=== PATIENT | female | born 1955 | race Caucasian/White ===

== ENCOUNTER → 2017-10-27 | Outpatient (CLI) | payer BC ==
--- NOTE | 2017-10-27 13:46 | Diagnostic Imaging Report ---
INDICATION: Routine screening. Comparison is made with prior studies from 03/29/2016 and 04/28/2014. The current study was also evaluated with a Computer Aided Detection (CAD) system. FINDINGS: Both breasts are heterogeneously dense, limiting the sensitivity of mammography. Numerous benign-appearing calcifications are identified and appear similar to prior exam. There is a focal density in the left breast best seen on the MLO tomographic views posterior depth at the nipple line. No correlate is identified on the CC view. No other abnormalities are seen. The axillae are unremarkable. IMPRESSION: Left breast density. Further evaluation with spot compression ML views is recommended. Sonography may be necessary at this time as well, if this persists. ACR BI-RADS Category 0: Incomplete. (Needs additional imaging evaluation). Result letter will be mailed to the patient. Note: At least 10% of breast cancer is not imaged by mammography. Dictated by: Dictated on workstation # [id number]
== END ==
LOC: RAD 09:46
PROVIDERS: ATTEND Family Medicine
DX: Z12.31 Encounter for screening mammogram for malignant neoplasm of breast (principal)
CPT/HCPCS: 77067

== ENCOUNTER → 2017-11-08 | Outpatient (CLI) | payer BC ==
--- NOTE | 2017-11-08 16:40 | Diagnostic Imaging Report ---
INDICATION: Left breast density. COMPARISON: Correlation is made with diagnostic mammogram from earlier the same day and screening mammogram from 10/27/2017. EXAMINATION: Sonographic interrogation of the inner left breast was performed. FINDINGS: There appear to be two tiny cysts at the 9 o'clock location, 5 cm from the nipple, likely accounting for the mammographic densities. The largest is approximately 6 mm x 3 mm x 5 mm. No solid mass is seen. IMPRESSION: BI-RADS 2. Simple cyst at the 9 o'clock location of the left breast, 5 cm from the nipple, corresponding with the mammographic density. The patient may return to routine annual screening mammography. Dictated by: Dictated on workstation # [id number]
--- NOTE | 2017-11-08 16:44 | Diagnostic Imaging Report ---
INDICATION: Left breast density. Patient presents for additional views. COMPARISON: Correlation is made with recent screening study from 10/27/2017. EXAMINATION: 2D and 3D left diagnostic mammography was performed. This included ML and spot compression ML and spot compression MLO views of the left breast. FINDINGS: Additional views fail to demonstrate a discrete mass. Only dense tissue is identified. The density on screening study appears to be medially located at posterior depth, approximately 6 cm from the nipple, projected at or just below the nipple line on the MLO view. No corresponding abnormality is seen on additional views. Even so, further evaluation with ultrasound is recommended. No suspicious calcifications are seen. IMPRESSION: BI-RADS 0. Additional views fail to demonstrate a discrete mass. Even so, sonographic interrogation of the left breast, medially, is recommended for further evaluation. ACR BI-RADS Category 0: Incomplete. (Needs additional imaging evaluation). Result letter will be mailed to the patient. Note: At least 10% of breast cancer is not imaged by mammography. Dictated by: Dictated on workstation # [id number]
== END ==
LOC: RAD 14:06
PROVIDERS: ATTEND Family Medicine
DX: N60.02 Solitary cyst of left breast (principal)
CPT/HCPCS: 76641

== ENCOUNTER → 2017-11-13 | Outpatient (CLI) | payer BC ==
[~2017-11-13] MED LIST: CATHETER FLUSH 10 ML SYR IV PRN; REGADENOSON 0.4 MG/5 ML SYR (LEXISCAN) IV ONE
[2017-11-13 10:06] VITALS: BP 152/83
[2017-11-13 10:07] VITALS: BP 137/82
--- NOTE | 2017-11-13 22:30 | STRESS TEST ---
DATE OF SERVICE: 11/13/2017 LEXISCAN MYOVIEW STRESS TEST REPORT REFERRING PHYSICIAN: Dr. Gongora. Baseline heart rate is 65, baseline blood pressure 137/75. Baseline EKG is sinus rhythm with no EKG changes. In summary, the patient was injected with 10.83 mCi of technetium-99 Myoview and the resting images were obtained. Then, the patient received 0.4 mg of LexiScan followed by 29.6 mCi of technetium-99 Myoview. Throughout the test, there were no EKG changes. The resting and stress images were reviewed and compared in the short axis, horizontal long axis, and vertical long axis views. Review of the images showed good radiotracer uptake with no significant ischemia or infarction. SSS is 2, SDS 2, TID value 1.0. On the gated images, the left ventricle appeared to be normal size with normal contractility. Calculated ejection fraction 88%. CONCLUSION: 1. The patient tolerated LexiScan well. 2. No ischemia or infarction on SPECT images. 3. Normal left ventricular size with normal contractility. Calculated ejection fraction 88%. Job ID: [id number] DocumentID: [id number] Dictated Date: 11/13/2017 16:46:59 Project Estimator Date: 11/13/2017 22:29:29 Dictated By: LESLY COLBERT MD
== END ==
LOC: CARD 08:17
PROVIDERS: ATTEND Family Medicine
DX: R06.02 Shortness of breath (principal)
CPT/HCPCS: 78452; 93017

== ENCOUNTER 2018-06-21 10:00 | Outpatient (CLI) | payer BC ==
[~2018-06-21] VITALS: Ht 157.5 cm; Wt 61.2 kg
[2018-06-21] MEDS ORDERED: ATOR10TA66 PO (10:11)
[2018-06-21] MEDS ORDERED: ESCI10TA55 PO (10:11)
== END 2018-06-21 10:55 | disposition home or self-care (01) ==
LOC: PREOP 10:00
PROVIDERS: ATTEND Surgery
DX: Z01.818 Encounter for other preprocedural examination (principal)

== ENCOUNTER 2018-06-25 12:01 | Day surgery (SDC) | payer BC ==
[~2018-06-25] VITALS: Ht 157.5 cm; Wt 61.2 kg
[~2018-06-25 12:01] MED LIST changes: +ATOR10TA66 PO; -CATHETER FLUSH 10 ML SYR IV PRN; +ESCI10TA55 PO; -REGADENOSON 0.4 MG/5 ML SYR (LEXISCAN) IV ONE
--- OUTSIDE RECORDS SUMMARY | 2018-06-25 12:04 | XMS REPORT | Continuity of Care Document ---
Author Author [facility] Address Unknown Phone Unavailable Allergies Active Description Code Type Severity Reaction Onset Reported/Identified Relationship to Patient Clinical Status Yes No Allergy Information Available [id number] Drug Allergy Unknown N/A 2017 Yes Sulfa (Sulfonamide Antibiotics) [id number] Drug Allergy Unknown RASH 2017 Medications There is no data. Problems Date Dx Coded Attending Type Code Diagnosis Diagnosed By 04/10/2012 V04.81 FLU DX (3 YRS AND ABOVE, IM) 04/10/2012 LOVEE DYE EXPERT, FUAD A V04.81 FLU DX (3 YRS AND ABOVE, IM) 04/10/2012 RAJMADELAINEE DYE EXPERT, FUAD A V04.81 FLU DX (3 YRS AND ABOVE, IM) 04/10/2012 RAJOTTE DYE EXPERT, FUAD A V04.81 FLU DX (3 YRS AND ABOVE, IM) 11/06/2012 729.5 PAIN- ARM 11/06/2012 RAJOTTE DYE EXPERT, FUAD A 729.5 PAIN- ARM 11/06/2012 RAJOTTE DYE EXPERT, FUAD A 729.5 PAIN- ARM 11/06/2012 RAJOTTE DYE EXPERT, FUAD A 729.5 PAIN- ARM 05/27/2013 RAJOTTE DYE EXPERT, FUAD A V06.1 TDAP DX 05/27/2013 RAJOTTE DYE EXPERT, FUAD A V06.1 TDAP DX 08/18/2014 RAJOTTE DYE EXPERT, FUAD A 461.9 SINUSITIS ACUTE 08/18/2014 RAJMADELAINEE DYE EXPERT, FUAD A 786.2 COUGH 03/03/2016 JULIO CESAR IYER, MARISEL Camacho Ot V76.12 OTH SCREEN MAMMO-MALIGN NEOPLASM OF BELLA 03/03/2016 MARISEL HARRELL MD Ot V76.12 OTH SCREEN MAMMO-MALIGN NEOPLASM OF BELLA 03/29/2016 KEISLER MD, MARISEL W Ot V76.12 OTH SCREEN MAMMO-MALIGN NEOPLASM OF BELLA 03/29/2016 JULIO CESAR IYER, MARISEL Camacho Ot V76.12 OTH SCREEN MAMMO-MALIGN NEOPLASM OF BELLA 04/06/2016 GELLENDER DO, GURU Cortez Ot Z12.31 ENCNTR SCREEN MAMMOGRAM FOR MALIGNANT NE 04/21/2016 GELLENDER DO, GURU A Ot R92.0 MAMMOGRAPHIC MICROCALCIFICATION FOUND ON 04/21/2016 GELLENDER DO, GURU A Ot R92.8 OTH ABN AND INCONCLUSIVE FINDINGS ON DX 04/22/2016 JULIO CESAR IYER, MARISEL Camacho Ot V76.12 OTH SCREEN MAMMO-MALIGN NEOPLASM OF BELLA 04/22/2016 JULIO CESAR IYER, MARISEL W Ot V76.12 OTH SCREEN MAMMO-MALIGN NEOPLASM OF BELLA 04/22/2016 GELLENDER DO, GURU Cortez Ot Z12.31 ENCNTR SCREEN MAMMOGRAM FOR MALIGNANT NE 04/22/2016 GELLENDER DO, GURU A Ot R92.0 MAMMOGRAPHIC MICROCALCIFICATION FOUND ON 04/22/2016 GELLENDER DO, GURU A Ot R92.8 OTH ABN AND INCONCLUSIVE FINDINGS ON DX 05/05/2016 GELLENDER DO, GURU A Ot R92.0 MAMMOGRAPHIC MICROCALCIFICATION FOUND ON 05/05/2016 GELLENDER DO, GURU A Ot R92.8 OTH ABN AND INCONCLUSIVE FINDINGS ON DX 10/30/2017 GELLENDER DO, GURU A Ot R92.2 INCONCLUSIVE MAMMOGRAM 10/30/2017 GELLENDER DO, GURU A Ot Z12.31 ENCNTR SCREEN MAMMOGRAM FOR MALIGNANT NE 10/31/2017 GELLENDER DO, GURU A Ot R06.02 SHORTNESS OF BREATH 10/31/2017 GELLENDER DO, GURU A Ot R06.02 SHORTNESS OF BREATH 10/31/2017 GELLENDER DO, GURU A Ot R06.02 SHORTNESS OF BREATH 11/07/2017 JULIO CESAR IYER, MARISEL W Ot V76.12 OTH SCREEN MAMMO-MALIGN NEOPLASM OF BELLA 11/07/2017 JULIO CESAR IYER, MARISEL W Ot V76.12 OTH SCREEN MAMMO-MALIGN NEOPLASM OF BELLA 11/07/2017 GELLENDER DO, GURU A Ot Z12.31 ENCNTR SCREEN MAMMOGRAM FOR MALIGNANT NE 11/07/2017 GELLENDER DO, GURU Cortez Ot R92.0 MAMMOGRAPHIC MICROCALCIFICATION FOUND ON 11/07/2017 GELLENDER DO, GURU Cortez Ot R92.8 OTH ABN AND INCONCLUSIVE FINDINGS ON DX 11/07/2017 GELLENDER DO, GURU Cortez Ot Z12.31 ENCNTR SCREEN MAMMOGRAM FOR MALIGNANT NE 11/07/2017 GELLENDER DO, GURU Cortez Ot R06.02 SHORTNESS OF BREATH 11/08/2017 GELLENDER DO, GURU Cortez Ot Z12.31 ENCNTR SCREEN MAMMOGRAM FOR MALIGNANT NE 11/09/2017 GELLENDER DO, GURU Cortez Ot N60.02 SOLITARY CYST OF LEFT BREAST 11/13/2017 GELLENDER DO, GURU Cortez Ot R06.02 SHORTNESS OF BREATH 11/15/2017 GELLENDER DO, GURU Cortez Ot R06.02 SHORTNESS OF BREATH 11/22/2017 GELLENDER DO, GURU Cortez Ot N60.02 SOLITARY CYST OF LEFT BREAST 11/30/2017 GELLENDER DO, GURU Cortez Ot R06.02 SHORTNESS OF BREATH 06/20/2018 PEYTON BRADY DO Ot Z01.818 ENCOUNTER FOR OTHER PREPROCEDURAL EXAMIN 06/21/2018 PEYTON BRADY DO Ot Z01.818 ENCOUNTER FOR OTHER PREPROCEDURAL EXAMIN Procedures Code Description Per[place] By [place] On [address]7 THERAPUTIC INJ SQ/IM 08/18/2014 J1040 DEPO MEDROL 80 MG INJ 08/18/2014 Results There is no data. Encounters ACCT No. Visit Date/Time Discharge Status Pt. Type Provider Facility Loc./Unit Complaint [id number] 08/18/2014 08:39:00 08/18/2014 23:59:59 CLS Outpatient FUAD MCKENZIE APRN [id number] 04/15/2014 12:13:00 04/15/2014 23:59:59 CLS Outpatient FUAD MCKENZIE APRN [id number] 04/30/2013 15:41:00 04/30/2013 23:59:59 CLS Outpatient FUAD MCKENZIE APRN [id number] 11/06/2012 11:17:00 Document Registration [id number] 06/21/2018 10:00:00 06/21/2018 10:55:00 DIS Outpatient PEYTON BRADY DO [facility] PREOP COLONOSCOPY [id number] 11/13/2017 08:17:00 11/13/2017 23:59:59 CLS Outpatient GURU GIRARD DO [facility] CARD SOB WHEN WALK UP STAIRS [id number] 11/08/2017 14:06:00 11/08/2017 23:59:59 CLS Outpatient GURU GIRARD DO [facility] RAD ABN MAMMO ON [id number] 10/30/2017 17:26:00 10/30/2017 23:59:59 CLS Outpatient GURU GIRARD DO [facility] RAD SOB W/ EXERTION [id number] 10/27/2017 09:46:00 10/27/2017 23:59:59 CLS Outpatient GURU GIRARD DO [facility] RAD YEARLY [id number] 04/20/2016 07:58:00 04/20/2016 23:59:59 CLS Outpatient GURU GIRARD DO [facility] RAD ABNORMAL MAMMO [id number] 03/29/2016 08:41:00 03/29/2016 23:59:59 CLS Outpatient GURU GIRARD DO [facility] RAD SCREENING [id number] 04/28/2014 15:29:00 04/28/2014 23:59:59 CLS Outpatient MARISEL HARRELL MD [facility] RAD SCREENING [id number] 02/08/2013 15:02:00 02/08/2013 23:59:59 CLS Outpatient MARISEL HARRELL MD [facility] RAD SCREENING [id number] 06/25/2018 13:00:00 PEN Preadmit PEYTON BRADY DO [facility] ENDO SCREENING
[2018-06-25] MEDS ORDERED: LACTATED RINGERS 1,000 ML IV STA (12:06)
[2018-06-25] MEDS ORDERED: LACTATED RINGERS 1,000 ML IV ONE (12:09)
[2018-06-25 12:10] VITALS: BP 130/82
[2018-06-25] MEDS ORDERED: PROPOFOL INJECTION 50 ML IV ONE (13:09)
--- NOTE | 2018-06-25 13:17 | Progress Note-Pre Operative ---
Pre-Operative Progress Note H&P Reviewed The H&P was reviewed, patient examined and no changes noted. Date Seen by Provider: Jun 25, 2018 Time Seen by Provider: 13:16 Date H&P Reviewed: Jun 25, 2018 Time H&P Reviewed: 13:16 Pre-Operative Diagnosis: screening colonoscopy PEYTON BRADY DO Jun 25, 2018 13:17
[2018-06-25] MEDS ORDERED: ONDANSETRON 4 MG/2 ML (SDV) Z0FRAN ONE (13:23)
[2018-06-25 13:40] VITALS: BP 111/63
--- NOTE | 2018-06-25 13:46 | Progress Note-Post Operative ---
Post-Operative Progess Note Surgeon (s)/Client Project Coordinator (s) Surgeon PEYTON BRADY DO Client Project Coordinator: na Pre-Operative Diagnosis screening colonoscopy Post-Operative Diagnosis cecum and sigmoid polyp, diverticulosis Procedure & Operative Findings Date of Procedure 06/25/18 Procedure Performed/Findings colonoscopy c hot bx polypectomy x 2 Anesthesia Type per cloth checker Estimated Blood Loss Estimated blood loss (mL): none Specimens/Packing Specimens Removed polyp x 2 PEYTON BRADY DO Jun 25, 2018 13:46
--- NOTE | 2018-06-25 13:49 | Discharge Inst-Simple/Standard ---
Discharge Inst-Standard Patient Instructions/Follow Up Plan of Care/Instructions/FU: 2 weeks Robert Activity as Tolerated: Yes Discharge Diet: Regular Diet PEYTON BRADY DO Jun 25, 2018 13:49
[2018-06-25 14:10] VITALS: BP 121/66
--- NOTE | 2018-06-25 14:24 | Anesthesia-General Post-Op ---
MAC Patient Condition Mental Status/LOC: Same as Preop Cardiovascular: Satisfactory Nausea/Vomiting: Absent Respiratory: Satisfactory Pain: Controlled Complications: Absent Post Op Complications Complications None Follow Up Care/Instructions Patient Instructions None needed. Anesthesiology Discharge Order Discharge Order Patient is doing well, no complaints, stable vital signs, no apparent adverse anesthesia problems. No complications reported per nursing. BRANDAN LAWSON CRNA Jun 25, 2018 14:24
[2018-06-25 14:25] VITALS: BP 121/66
--- NOTE | 2018-06-25 22:15 | OPERATIVE REPORT ---
DATE OF SERVICE: 06/25/2018 PREOPERATIVE DIAGNOSIS: Screening colonoscopy. POSTOPERATIVE DIAGNOSES: Cecal and sigmoid colon polyp and diverticulosis. PROCEDURE: Colonoscopy with hot biopsy polypectomy x2. SURGEON: Peyton Jones DO ANESTHESIA: Per FINANCIAL WRITER. ESTIMATED BLOOD LOSS: None. COMPLICATIONS: None. INDICATIONS: The patient is a 63-year-old female due for screening colonoscopy. She understands risks and benefits of procedure and wished to proceed with procedure. Consent was signed on the chart. DESCRIPTION OF PROCEDURE: The patient was taken to the endoscopy suite, placed in left lateral recumbent position. Timeout was performed. Digital rectal exam was performed. There were no palpable polyps, masses or ulcerations. Scope was inserted into the rectum and advanced all the way to the cecum with minimal difficulty. Prep was adequate. Scope was then slowly retracted back. A small polyp present right at the ileocecal valve. Hot biopsy polypectomy was performed. Scope was then continuously retracted back and no other polyps, masses or ulcerations within the ascending, transverse and descending colon. Within the sigmoid colon, another polyp was present, which hot biopsy polypectomy was performed. There is also a minimal amount of diverticulosis present. Scope was continuously retracted back in the rectum, where it was also retroflexed noting no other pathology. Scope was returned to its normal position, slowly withdrawn until completely removed. The patient tolerated procedure well without any complications. She was taken to recovery room in stable condition. RECOMMENDATIONS: The patient will follow up in the office to discuss biopsy results in 2 weeks. She will need a repeat colonoscopy in 3 to 5 years depending upon pathology. If she has any issues before that, she should be reevaluated at that time. Job ID: [id number] DocumentID: [id number] Dictated Date: 06/25/2018 13:57:14 Rubber Washer Date: 06/25/2018 22:15:47 Dictated By: PEYTON JONES DO
== END 2018-06-25 14:25 | disposition home or self-care (01) ==
LOC: ENDO 12:01
PROVIDERS: ATTEND Surgery
DX: Z12.11 Encounter for screening for malignant neoplasm of colon (principal); D12.5 Benign neoplasm of sigmoid colon; D12.0 Benign neoplasm of cecum; K57.30 Diverticulosis of large intestine without perforation or abscess without bleeding; E78.5 Hyperlipidemia, unspecified; Z79.899 Other long term (current) drug therapy
CPT/HCPCS: 88305

== ENCOUNTER → 2019-05-10 | Outpatient (CLI) | payer BC ==
[2019-05-10 10:45] LABS: BILIRUBIN,URINE NEGATIVE (NEGATIVE); CLARITY,URINE CLEAR; COLOR,URINE YELLOW; GLUCOSE, URINE (UA) NEGATIVE (NEGATIVE); KETONES,URINE NEGATIVE (NEGATIVE); LEUKOCYTE ESTERASE ,URINE 1+ (NEGATIVE); NITRITE,URINE POSITIVE (NEGATIVE); PH,URINE 7 (5-9); PROTEIN,URINE NEGATIVE (NEGATIVE)
[2019-05-10 10:52] LABS: BACTERIA,URINE MODERATE /HPF; RBC,URINE 0-2 /HPF
== END ==
LOC: LAB 10:31
PROVIDERS: ATTEND Family Medicine
DX: N39.0 Urinary tract infection, site not specified (principal)
CPT/HCPCS: 81000; 87088; 87186

== ENCOUNTER → 2019-05-15 | Outpatient (CLI) | payer BC ==
[2019-05-15 15:17] LABS: BUN/CREATININE RATIO 22; CREATININE SERUM 0.79 MG/DL (0.60-1.30); GFR ESTIMATED > 60
== END ==
LOC: LAB 14:51
PROVIDERS: ATTEND Family Medicine
DX: N28.9 Disorder of kidney and ureter, unspecified (principal)
CPT/HCPCS: 36415; 82565; 84520

== ENCOUNTER → 2019-05-16 | Outpatient (CLI) | payer BC ==
[~2019-05-16] MED LIST changes: +CATHETER FLUSH 10 ML SYR IV PRN; +HOLD METFORMIN - RECEIVED CONTRAST 20 ML VIAL IV SCH; +IOHEXOL 350 MG/ML 100 ML (OMNIPAQUE 350) VIAL IV ONE; +NS 100 ML (IVPB) BAG IV ONE
--- NOTE | 2019-05-16 11:11 | Diagnostic Imaging Report ---
PROCEDURE: CT abdomen and pelvis with and without contrast. TECHNIQUE: Precontrast acquisitions were acquired through the abdomen and pelvis. Multiple contiguous axial images were obtained through the abdomen and pelvis after the administration of intravenous contrast. Auto Exposure Controls were utilized during the CT exam to meet ALARA standards for radiation dose reduction. INDICATION: Right flank pain, hematuria. FINDINGS: The previous CT abdomen/pelvis exam of 01/07/2008 failed to show any sign of nephrolithiasis or of obstruction of either kidney. On the pre intravenous contrast series of this exam, there is no sign of nephrolithiasis or urolithiasis. Following administration of intravenous contrast, there was excretion by both kidneys. The kidneys do not appear to be obstructed. The urinary bladder is only partially filled and consequently not well evaluated. There is no obvious bladder abnormality noted. The uterus is surgically absent. There is diverticulosis of the sigmoid and descending colon, but there is no sign of acute diverticulitis. There also appears to be a suture line along the cecum. I suspect that the appendix is surgically absent. Correlation with the patient's surgical history would be recommended. There are a few fluid-filled segments of small bowel in the mid abdomen. This appearance is nonspecific. There is no sign of a bowel obstruction. The liver does not appear to be enlarged. There is a 1.1 cm rounded area of low density along the medial aspect of the right lobe and a smaller 0.8 cm area of low density along the lateral aspect of the right lobe. In retrospect, these findings were present on the prior exam and have not changed. Consequently, these may well represent cysts. The spleen, pancreas, adrenals, gallbladder, aorta, and inferior vena cava are unremarkable for an acute abnormality. The stomach is not well distended and consequently difficult to assess. There does appear to be small hiatal hernia. The lung bases are clear. The bone windows show no evidence for a fracture or for a destructive lesion. IMPRESSION: 1. There is no evidence for nephrolithiasis or for urolithiasis, and the kidneys do not appear to be obstructed. 2. There is no acute abnormality of the abdomen or pelvis noted. 3. The uterus is surgically absent. The appendix may also be surgically absent. Correlation with the patient's surgical history would be recommended. Dictated by: Dictated on workstation # [id number]
== END ==
LOC: RAD 09:57
PROVIDERS: ATTEND Family Medicine
DX: N28.9 Disorder of kidney and ureter, unspecified (principal); R10.9 Unspecified abdominal pain; R31.9 Hematuria, unspecified; Z90.710 Acquired absence of both cervix and uterus
CPT/HCPCS: 74178

== ENCOUNTER → 2021-11-10 | Outpatient (CLI) | payer BC ==
[~2021-11-10] MED LIST changes: -CATHETER FLUSH 10 ML SYR IV PRN; +ESCI-2 PO; -ESCI10TA55 PO; -HOLD METFORMIN - RECEIVED CONTRAST 20 ML VIAL IV SCH; -IOHEXOL 350 MG/ML 100 ML (OMNIPAQUE 350) VIAL IV ONE; -NS 100 ML (IVPB) BAG IV ONE
--- NOTE | 2021-11-10 13:27 | Diagnostic Imaging Report ---
INDICATION: Routine screening. COMPARISON: 10/27/2017 and 03/29/2016. TECHNIQUE: 2D and 3D bilateral screening mammography was performed with CAD. FINDINGS: Both breasts are heterogeneously dense, limiting the sensitivity of mammography. Numerous rounded densities in the upper outer left breast at posterior depth are noted, likely cysts. These were not present on the prior exam. There is a probable cyst in the upper outer right breast as well at posterior depth. These areas should be evaluated with ultrasound. There are scattered benign calcifications. No malignant-appearing microcalcifications are seen. IMPRESSION: There are rounded densities in the upper outer aspects of both breasts at posterior depth, likely cysts. Further evaluation with ultrasound is recommended. ACR BI-RADS Category 0: Incomplete. (Needs additional imaging evaluation). Result letter will be mailed to the patient. Note: At least 10% of breast cancer is not imaged by mammography. Dictated by: Dictated on workstation # [id number]
== END ==
LOC: RAD 10:15
PROVIDERS: ATTEND Family Medicine
DX: Z12.31 Encounter for screening mammogram for malignant neoplasm of breast (principal)
CPT/HCPCS: 77063; 77067

== ENCOUNTER → 2021-11-15 | Outpatient (CLI) | payer BC ==
--- NOTE | 2021-11-15 11:47 | Diagnostic Imaging Report ---
Bilateral breast ultrasound INDICATION: Abnormal mammogram The recent screening mammogram performed on 11/10/2021 noted rounded densities in the upper-outer quadrants of both breasts. These were felt to represent cysts. On this exam there are indeed multiple benign-appearing cysts in the upper outer quadrants of each breast. The largest cyst on the right measures 1.3 x 0.6 x 1.4 cm wall the largest cyst on the left is estimated to be 1.8 x 0.6 x 1.3 cm. There are no solid masses to suggest malignancy. IMPRESSION: 1. There are multiple benign-appearing cysts in the upper-outer quadrant of each breast. There is no solid mass to suggest lucency. 2. The patient should have her annual bilateral screening mammogram on schedule in November 2022. ACR BI-RADS Category 2: Benign findings. Dictated by: Dictated on workstation # [id number]
== END ==
LOC: RAD 10:30
PROVIDERS: ATTEND Family Medicine
DX: N60.02 Solitary cyst of left breast (principal); N60.01 Solitary cyst of right breast
CPT/HCPCS: 76642

== ENCOUNTER → 2023-03-15 | Outpatient (CLI) | payer BC ==
--- NOTE | 2023-03-15 11:03 | Diagnostic Imaging Report ---
INDICATION: Routine screening. COMPARISON: 11/10/2021 and 10/27/2017. TECHNIQUE: 2D and 3D bilateral screening mammography was performed with CAD. FINDINGS: Both breasts are heterogeneously dense, limiting the sensitivity of mammography. The parenchymal pattern is stable. No mass or malignant-appearing microcalcifications are seen. There are occasional benign calcifications. The axillae are unremarkable. IMPRESSION: No mammographic features suspicious for malignancy are identified. ACR BI-RADS Category 2: Benign findings. Result letter will be mailed to the patient. Note: At least 10% of breast cancer is not imaged by mammography. Dictated by: Dictated on workstation # [id number]
== END ==
LOC: RAD 09:28
PROVIDERS: ATTEND Family Medicine
DX: Z12.31 Encounter for screening mammogram for malignant neoplasm of breast (principal)
CPT/HCPCS: 77063; 77067